=== PATIENT | male | born 1940 | race Caucasian/White ===

== ENCOUNTER 2016-11-06 07:52 | Inpatient (IN) | payer MEDICARE, MEDICAID ==
[~2016-11-06] VITALS: Ht 165.1 cm; Wt 63.6 kg
[~2016-11-06 07:52] MED LIST: ASPI-1093 PO; CLOP75 PO; DIAZ5 PO; DOCU250C28 PO; DULO30CA2 PO; FOLI1TAB85 PO; INSLAN SQ; PANT40TA25 PO; PHOSLOC PO; SIMV-261 PO
[2016-11-06 08:11] LABS: GLUCOSE,POINT OF CARE 59 MG/DL (70-110)
[2016-11-06] MEDS ORDERED: SAXA2.5T PO (08:15)
[2016-11-06] MEDS ORDERED: CLOP75 PO (08:15)
[2016-11-06] MEDS ORDERED: DIAZ5 PO (08:15)
[2016-11-06] MEDS ORDERED: HUM100IN SQ (08:15)
[2016-11-06] MEDS ORDERED: CARV3 PO (08:15)
[2016-11-06 09:31] LABS: ANION GAP 12 mmol/L (8-16); BASOPHILS % (AUTO) 0.5 % (0.0-2.0); CALCIUM, TOTAL 8.8 mg/dL (8.8-10.5); CARBON DIOXIDE 28 mmol/L (22-29); CHLORIDE 102 mmol/L (98-107); CREATININE 5.74 mg/dL (0.60-1.30); EOSINOPHILS % (AUTO) 0.2 % (1.0-6.0); GLOMERULAR FILTR. RATE CALC 10 mL/min (>60); HEMATOCRIT 32.3 % (41-53); HEMOGLOBIN 10.7 g/dL (13.5-17.5); LYMPHOCYTES # (AUTO) 1.2 K/uL (1.0-4.8); LYMPHOCYTES % (AUTO) 19.1 % (22.0-44.0); MEAN CORPUSCULAR HGB CONC 33.1 G/dL (31.0-37.0); MEAN CORPUSCULAR VOLUME 103 fL (80-100); MONOCYTES # (AUTO) 0.6 K/uL (0.1-1.0); NEUTROPHILS # (AUTO) 4.5 K/uL (1.8-7.7); NEUTROPHILS % (AUTO) 70.2 % (40.0-70.0); POTASSIUM 3.4 mmol/L (3.5-5.1); RED BLOOD CELL COUNT(AUTO) 3.14 MIL/uL (4.50-5.90); RED CELL DISTRIBUTION WIDTH 20.3 % (11.5-14.5); SODIUM SERUM 142 mmol/L (136-145); UREA NITROGEN, BLOOD 21 mg/dL (7-18); WHITE BLOOD COUNT (AUTO) 6.4 K/uL (4.5-11.0)
[2016-11-06 09:33] LABS: PLATELET COUNT (AUTO) 73 K/uL (150-450)
[2016-11-06 09:57] LABS: ALANINE AMINOTRANSFERASE 17 U/L (12-78); ALBUMIN 2.5 g/dL (3.4-5.0); ASPARTATE AMINOTRANSFERASE 51 U/L (15-37); BILIRUBIN,TOTAL 0.8 mg/dL (0.1-1.0); CREATINE KINASE, TOTAL 165 U/L (39-308); TOTAL PROTEIN, SERUM 6.1 g/dL (6.4-8.2)
[2016-11-06 09:57] LABS: GLUCOSE,POINT OF CARE 64 MG/DL (70-110)
[2016-11-06 09:58] LABS: B-TYPE NATRIURETIC PEPTIDE > 5000 pg/mL (0-100)
[2016-11-06 09:59] LABS: RBC MORPHOLOGY COMMENT DIMORPHIC RBC
[2016-11-06 10:00] LABS: INR 1.4 (0.9-1.1); PROTHROMBIN TIME 14.5 SEC (9.4-11.6)
[2016-11-06 10:11] LABS: GLUCOSE,POINT OF CARE 74 MG/DL (70-110)
[2016-11-06 12:21] LABS: GLUCOSE,POINT OF CARE 103 MG/DL (70-110)
[2016-11-06] MEDS ORDERED: PHENOBARB/HYOSCY/ATROPINE/SCOP 5 ML UDCUP ELIXIR PO ONE (13:30)
[2016-11-06] MEDS ORDERED: ZOLPIDEM TARTRATE 5 MG TABLET PO PRN (17:45)
[2016-11-06] MEDS ORDERED: ONDANSETRON HCL 4 MG/2 ML VIAL IVP PRN (17:45)
[2016-11-06] MEDS ORDERED: DEXTROSE 50%-WATER 25 GM/50 ML SYRINGE IVP PRN (17:45)
[2016-11-06] MEDS ORDERED: IPRATROPIUM BROMIDE 0.5 MG/2.5 ML NEB SOLUTION NEB PRN (17:45)
[2016-11-06] MEDS ORDERED: MAGNESIUM HYDROXIDE SUSPENSION 30 ML UDCUP PO PRN (17:45)
[2016-11-06] MEDS ORDERED: BISACODYL 10 MG RECTAL RECTAL SUPPOSITORY PR PRN (17:45)
[2016-11-06] MEDS ORDERED: ALBUTEROL SULFATE 2.5 MG/0.5 ML NEB SOLUTION NEB PRN (17:45)
[2016-11-06] MEDS ORDERED: ACETAMINOPHEN 325 MG TABLET PO PRN (18:15)
[2016-11-06] MEDS: NITROGLYCERIN 2% (1 GM=INCH) PACKET TP SCH ×2 (18:32→23:22)
[2016-11-06 19:11] LABS: GLUCOSE,POINT OF CARE 144 MG/DL (70-110)
[2016-11-06 20:36] VITALS: BP 123/76
[2016-11-06] MEDS: MORPHINE SULFATE 2 MG/ML SYRINGE IVP PRN (20:44)
[2016-11-06] MEDS ORDERED: FUROSEMIDE 20 MG/2 ML VIAL IVP ONE (22:15)
[2016-11-06] MEDS ORDERED: GuaiFENesin/D-METHORPHAN [SUGAR-FREE] 200-20MG/10 ML SYRUP UDCUP PO PRN (22:15)
[2016-11-06] MEDS: SIMVASTATIN 40 MG TABLET PO SCH (22:30)
[2016-11-06] MEDS: INSULIN ASPART 100 UNITS/ML SQ PRN (22:58)
[2016-11-06] MEDS: HEPARIN SODIUM,PORCINE 5,000 UNITS/ML VIAL SQ SCH (23:22)
[2016-11-06 23:44] VITALS: BP 105/51
[2016-11-07] MEDS: MORPHINE SULFATE 2 MG/ML SYRINGE IVP PRN (01:47)
[2016-11-07 04:08] VITALS: BP 108/57
[2016-11-07] MEDS: NITROGLYCERIN 2% (1 GM=INCH) PACKET TP SCH ×4 (05:57→23:40)
[2016-11-07 07:08] LABS: BASOPHILS % (AUTO) 0.5 % (0.0-2.0); EOSINOPHILS % (AUTO) 0 % (1.0-6.0); HEMATOCRIT 31.4 % (41-53); HEMOGLOBIN 10.3 g/dL (13.5-17.5); LYMPHOCYTES % (AUTO) 18.3 % (22.0-44.0); MEAN CORPUSCULAR HEMOGLOBIN 33.2 pg (26.0-34.0); MEAN CORPUSCULAR HGB CONC 32.7 G/dL (31.0-37.0); MEAN CORPUSCULAR VOLUME 102 fL (80-100); MONOCYTES # (AUTO) 0.5 K/uL (0.1-1.0); MONOCYTES % (AUTO) 9.1 % (2.0-9.0); NEUTROPHILS % (AUTO) 72.1 % (40.0-70.0); PLATELET COUNT (AUTO) 72 K/uL (150-450); RED BLOOD CELL COUNT(AUTO) 3.09 MIL/uL (4.50-5.90); RED CELL DISTRIBUTION WIDTH 20.7 % (11.5-14.5); WHITE BLOOD COUNT (AUTO) 5.6 K/uL (4.5-11.0)
[2016-11-07 07:18] VITALS: BP 131/46
[2016-11-07 07:21] LABS: HEMOGLOBIN A1C 6.2 % (4.5-6.2)
[2016-11-07 08:08] LABS: ANION GAP 14 mmol/L (8-16); CARBON DIOXIDE 26 mmol/L (22-29); CHLORIDE 102 mmol/L (98-107); CHOL/HDL RATIO 2.8 (4.2-7.3); CREATINE KINASE MB 1.2 ng/mL (0-5); CREATINE KINASE, TOTAL 101 U/L (39-308); CREATININE 7.18 mg/dL (0.60-1.30); GLOMERULAR FILTR. RATE CALC 7 mL/min (>60); POTASSIUM 3.9 mmol/L (3.5-5.1); SODIUM SERUM 142 mmol/L (136-145); UREA NITROGEN, BLOOD 31 mg/dL (7-18)
[2016-11-07 08:09] LABS: THYROID STIMULATING HORMONE 3.31 uIU/mL (0.36-3.74)
[2016-11-07 08:18] LABS: CALCIUM, TOTAL 8.5 mg/dL (8.8-10.5)
[2016-11-07 08:31] LABS: GLUCOSE COMMENT 1 Received Meds; GLUCOSE,POINT OF CARE 145 MG/DL (70-110)
[2016-11-07] MEDS ORDERED: PANTOPRAZOLE SODIUM 40 MG DR TABLET PO SCH (09:00)
[2016-11-07 09:24] LABS: VITAMIN B12 LEVEL 1424 pg/mL (211-911)
[2016-11-07] MEDS: VITAMIN B COMP/VIT C/FOLIC ACID CAPSULE PO SCH (09:26)
[2016-11-07] MEDS: ASPIRIN 81 MG EC TABLET PO SCH (09:26)
[2016-11-07] MEDS: CLOPIDOGREL BISULFATE 75 MG TABLET PO SCH (09:27)
[2016-11-07] MEDS: HEPARIN SODIUM,PORCINE 5,000 UNITS/ML VIAL SQ SCH ×3 (09:27→23:44)
[2016-11-07] MEDS: PANTOPRAZOLE SODIUM 40 MG DR TABLET PO SCH (09:33)
[2016-11-07] MEDS: DULoxetine HCL 30 MG CAPSULE PO SCH (09:33)
[2016-11-07 10:48] LABS: RBC MORPHOLOGY COMMENT ABNORMAL RBC MORPH
[2016-11-07 11:04] VITALS: BP 136/53
[2016-11-07 16:55] VITALS: BP 99/73
[2016-11-07 20:10] VITALS: BP 97/54
[2016-11-07] MEDS: SIMVASTATIN 40 MG TABLET PO SCH (20:17)
[2016-11-07 23:41] VITALS: BP 100/54
[2016-11-08 04:35] VITALS: BP 103/51
[2016-11-08] MEDS: NITROGLYCERIN 2% (1 GM=INCH) PACKET TP SCH ×3 (06:00→20:47)
[2016-11-08 06:21] LABS: BASOPHILS % (AUTO) 0.4 % (0.0-2.0); EOSINOPHILS % (AUTO) 0.3 % (1.0-6.0); HEMOGLOBIN 10.8 g/dL (13.5-17.5); LYMPHOCYTES % (AUTO) 17.5 % (22.0-44.0); MEAN CORPUSCULAR HEMOGLOBIN 33.9 pg (26.0-34.0); MEAN CORPUSCULAR HGB CONC 32.7 G/dL (31.0-37.0); MEAN CORPUSCULAR VOLUME 104 fL (80-100); MONOCYTES # (AUTO) 0.6 K/uL (0.1-1.0); MONOCYTES % (AUTO) 9.5 % (2.0-9.0); NEUTROPHILS # (AUTO) 4.3 K/uL (1.8-7.7); NEUTROPHILS % (AUTO) 72.3 % (40.0-70.0); PLATELET COUNT (AUTO) 78 K/uL (150-450); RED BLOOD CELL COUNT(AUTO) 3.19 MIL/uL (4.50-5.90); RED CELL DISTRIBUTION WIDTH 20.5 % (11.5-14.5)
[2016-11-08 06:28] LABS: CALCIUM, TOTAL 8.7 mg/dL (8.8-10.5); CREATININE 4.46 mg/dL (0.60-1.30); POTASSIUM 3.9 mmol/L (3.5-5.1)
[2016-11-08 08:20] VITALS: BP 105/52
[2016-11-08 09:11] LABS: RBC MORPHOLOGY COMMENT ABNORMAL RBC MORPH
[2016-11-08] MEDS: HEPARIN SODIUM,PORCINE 5,000 UNITS/ML VIAL SQ SCH ×2 (09:48→18:29)
[2016-11-08] MEDS: DULoxetine HCL 30 MG CAPSULE PO SCH (09:48)
[2016-11-08] MEDS: PANTOPRAZOLE SODIUM 40 MG DR TABLET PO SCH (09:48)
[2016-11-08] MEDS: CLOPIDOGREL BISULFATE 75 MG TABLET PO SCH (09:49)
[2016-11-08] MEDS: VITAMIN B COMP/VIT C/FOLIC ACID CAPSULE PO SCH (09:49)
[2016-11-08] MEDS: ASPIRIN 81 MG EC TABLET PO SCH (09:49)
[2016-11-08] MEDS ORDERED: NITROGLYCERIN 0.4 MG SUBLINGUAL TABLET #25 SL PRN (10:45)
[2016-11-08 11:11] VITALS: BP 100/51
[2016-11-08] MEDS ORDERED: SODIUM CHLORIDE 0.9% 2,000 ML IV ONE ×2 (11:13→11:25)
[2016-11-08] MEDS: INSULIN ASPART 100 UNITS/ML SQ PRN ×2 (12:53→18:31)
[2016-11-08] MEDS ORDERED: IPRATROPIUM BROMIDE 0.5 MG/2.5 ML NEB SOLUTION NEB PRN (15:00)
[2016-11-08] MEDS ORDERED: ALBUTEROL SULFATE 2.5 MG/0.5 ML NEB SOLUTION NEB PRN (15:00)
[2016-11-08 15:51] VITALS: BP 107/55
[2016-11-08 19:30] VITALS: BP 105/51
[2016-11-08] MEDS: SIMVASTATIN 40 MG TABLET PO SCH (20:51)
[2016-11-08 23:57] LABS: GLUCOSE COMMENT 1 Received Meds; GLUCOSE,POINT OF CARE 136 MG/DL (70-110)
[2016-11-09 00:22] VITALS: BP 105/56
[2016-11-09] MEDS: HEPARIN SODIUM,PORCINE 5,000 UNITS/ML VIAL SQ SCH ×3 (00:35→16:00)
[2016-11-09 04:03] VITALS: BP 108/75
[2016-11-09] MEDS: NITROGLYCERIN 2% (1 GM=INCH) PACKET TP SCH ×3 (06:00→11:58)
[2016-11-09 06:56] LABS: GLUCOSE,POINT OF CARE 109 MG/DL (70-110)
[2016-11-09 06:56] LABS: GLUCOSE,POINT OF CARE 91 MG/DL (70-110)
[2016-11-09 07:15] LABS: BASOPHILS % (AUTO) 0.7 % (0.0-2.0); EOSINOPHILS % (AUTO) 1.2 % (1.0-6.0); HEMATOCRIT 35.5 % (41-53); HEMOGLOBIN 11.6 g/dL (13.5-17.5); LYMPHOCYTES % (AUTO) 17.2 % (22.0-44.0); MEAN CORPUSCULAR HEMOGLOBIN 33.6 pg (26.0-34.0); MEAN CORPUSCULAR HGB CONC 32.8 G/dL (31.0-37.0); MEAN CORPUSCULAR VOLUME 103 fL (80-100); MONOCYTES # (AUTO) 0.5 K/uL (0.1-1.0); MONOCYTES % (AUTO) 9.1 % (2.0-9.0); NEUTROPHILS # (AUTO) 4.2 K/uL (1.8-7.7); NEUTROPHILS % (AUTO) 71.8 % (40.0-70.0); PLATELET COUNT (AUTO) 83 K/uL (150-450); RED BLOOD CELL COUNT(AUTO) 3.46 MIL/uL (4.50-5.90); RED CELL DISTRIBUTION WIDTH 21.4 % (11.5-14.5); WHITE BLOOD COUNT (AUTO) 5.9 K/uL (4.5-11.0)
[2016-11-09 07:16] VITALS: BP 99/46
[2016-11-09 07:19] LABS: RBC MORPHOLOGY COMMENT ABNORMAL RBC MORPH
[2016-11-09 07:21] LABS: GLUCOSE,POINT OF CARE 137 MG/DL (70-110)
[2016-11-09 07:36] LABS: CREATININE 3.89 mg/dL (0.60-1.30); POTASSIUM 3.3 mmol/L (3.5-5.1); URIC ACID 2.6 mg/dL (2.6-7.2)
[2016-11-09] MEDS: ASPIRIN 81 MG EC TABLET PO SCH (08:04)
[2016-11-09] MEDS: DULoxetine HCL 30 MG CAPSULE PO SCH (08:04)
[2016-11-09] MEDS: CLOPIDOGREL BISULFATE 75 MG TABLET PO SCH (08:04)
[2016-11-09] MEDS: PANTOPRAZOLE SODIUM 40 MG DR TABLET PO SCH (08:04)
[2016-11-09] MEDS: VITAMIN B COMP/VIT C/FOLIC ACID CAPSULE PO SCH (08:04)
[2016-11-09] MEDS ORDERED: PredniSONE 20 MG TABLET PO SCH (09:00)
[2016-11-09 10:59] VITALS: BP 125/65
[2016-11-09] MEDS: INSULIN ASPART 100 UNITS/ML SQ PRN (11:59)
[2016-11-09 13:56] LABS: GLUCOSE COMMENT 1 Received Meds; GLUCOSE,POINT OF CARE 176 MG/DL (70-110)
[2016-11-09 15:25] VITALS: BP 98/52
[2016-11-10 20:42] LABS: GLUCOSE,POINT OF CARE 98 MG/DL (70-110)
[2016-11-10 20:42] LABS: GLUCOSE,POINT OF CARE 114 MG/DL (70-110)
[2016-11-10 20:42] LABS: GLUCOSE COMMENT 1 Received Meds; GLUCOSE,POINT OF CARE 155 MG/DL (70-110)
[2016-11-10 20:42] LABS: GLUCOSE,POINT OF CARE 161 MG/DL (70-110)
[2016-11-10 20:42] LABS: GLUCOSE,POINT OF CARE 108 MG/DL (70-110)
[2016-12-12] MEDS ORDERED: VANC250C13 PO (15:16)
[2016-12-12] MEDS ORDERED: METO25TA6 PO (15:16)
[2016-12-12] MEDS ORDERED: FAMO20 PO (15:16)
[2016-12-12] MEDS ORDERED: MIDO5 PO (15:16)
[2016-12-12] MEDS ORDERED: SEVEC800 PO (15:16)
[2016-12-12] MEDS ORDERED: ATOR40TA28 PO (15:16)
== END 2016-11-09 16:40 | DRG 291 ==
LOC: EMS 07:54 → 5N 19:34
PROVIDERS: ADMIT Internal Medicine Geriatric Medicine; ATTEND Internal Medicine Geriatric Medicine
PROC: 5A1D60Z (ICD-10-PCS; principal; 2016-11-07)
DX: I13.2 Hypertensive heart and chronic kidney disease with heart failure and with stage 5 chronic kidney disease, or end stage renal disease (principal); N18.6 End stage renal disease; I50.23 Acute on chronic systolic (congestive) heart failure; E46 Unspecified protein-calorie malnutrition; I25.110 Atherosclerotic heart disease of native coronary artery with unstable angina pectoris; D69.6 Thrombocytopenia, unspecified; E11.22 Type 2 diabetes mellitus with diabetic chronic kidney disease; D63.8 Anemia in other chronic diseases classified elsewhere; E78.5 Hyperlipidemia, unspecified; E87.6 Hypokalemia; M19.90 Unspecified osteoarthritis, unspecified site; J45.909 Unspecified asthma, uncomplicated; H40.9 Unspecified glaucoma; F32.9 Major depressive disorder, single episode, unspecified; I25.2 Old myocardial infarction; I25.5 Ischemic cardiomyopathy; E11.51 Type 2 diabetes mellitus with diabetic peripheral angiopathy without gangrene; M10.9 Gout, unspecified; K29.70 Gastritis, unspecified, without bleeding; Z99.2 Dependence on renal dialysis; Z88.8 Allergy status to other drugs, medicaments and biological substances; Z79.899 Other long term (current) drug therapy; Z79.02 Long term (current) use of antithrombotics/antiplatelets; Z79.4 Long term (current) use of insulin; Z79.82 Long term (current) use of aspirin; Z95.1 Presence of aortocoronary bypass graft; Z95.5 Presence of coronary angioplasty implant and graft; Z95.810 Presence of automatic (implantable) cardiac defibrillator; Z98.890 Other specified postprocedural states; Z68.23 Body mass index [BMI] 23.0-23.9, adult; Z86.73 Personal history of transient ischemic attack (TIA), and cerebral infarction without residual deficits; Z82.49 Family history of ischemic heart disease and other diseases of the circulatory system
CPT/HCPCS: 82306; 82607; 82746; 82962; 83036; 83735; 84100; 84439; 84443; 84550; 87081; 87324; 87340; 87449; 90935; 93005; 99285; J1644; J1940; J2270; J7030

== ENCOUNTER 2016-11-13 10:47 | Inpatient (IN) | payer MEDICARE, MEDICAID ==
[~2016-11-13] VITALS: Ht 160 cm; Wt 69.1 kg
[~2016-11-13 10:47] MED LIST changes: +CARV3 PO; -DOCU250C28 PO; +HUM100IN SQ; -PHOSLOC PO; +SAXA2.5T PO
[2016-11-13] MEDS ORDERED: VITAD1000 PO (11:01)
[2016-11-13] MEDS ORDERED: SAXA2.5T PO (11:01)
[2016-11-13 11:18] LABS: BASOPHILS # (AUTO) 0.01 K/uL (0.00-0.20); BASOPHILS % (AUTO) 0.2 % (0.0-2.0); EOSINOPHILS % (AUTO) 0.13 % (1.0-6.0); HEMATOCRIT 33.5 % (41-53); HEMOGLOBIN 11.2 g/dL (13.5-17.5); LYMPHOCYTES # (AUTO) 0.3 K/uL (1.0-4.8); LYMPHOCYTES % (AUTO) 9.6 % (22.0-44.0); MEAN CORPUSCULAR HEMOGLOBIN 33.5 pg (26.0-34.0); MEAN CORPUSCULAR HGB CONC 33.4 G/dL (31.0-37.0); MEAN CORPUSCULAR VOLUME 101 fL (80-100); MONOCYTES # (AUTO) 0.3 K/uL (0.1-1.0); MONOCYTES % (AUTO) 10.2 % (2.0-9.0); NEUTROPHILS # (AUTO) 2.5 K/uL (1.8-7.7); NEUTROPHILS % (AUTO) 79.9 % (40.0-70.0); PLATELET COUNT (AUTO) 126 K/uL (150-450); RED BLOOD CELL COUNT(AUTO) 3.33 MIL/uL (4.50-5.90); RED CELL DISTRIBUTION WIDTH 20.7 % (11.5-14.5); WHITE BLOOD COUNT (AUTO) 3.2 K/uL (4.5-11.0)
[2016-11-13 11:19] LABS: INR 1.2 (0.9-1.1); PROTHROMBIN TIME 12.4 SEC (9.4-11.6)
[2016-11-13 11:25] LABS: GLUCOSE,POINT OF CARE 72 MG/DL (70-110)
[2016-11-13] MEDS ORDERED: SODIUM CHLORIDE 0.9% 1,000 ML IV ONE (11:30)
[2016-11-13 11:34] LABS: ALANINE AMINOTRANSFERASE 12 U/L (12-78); ALBUMIN 2.4 g/dL (3.4-5.0); ANION GAP 9 mmol/L (8-16); ASPARTATE AMINOTRANSFERASE 27 U/L (15-37); BILIRUBIN,TOTAL 1.5 mg/dL (0.1-1.0); CALCIUM, TOTAL 8.4 mg/dL (8.8-10.5); CARBON DIOXIDE 30 mmol/L (22-29); CHLORIDE 104 mmol/L (98-107); CREATINE KINASE, TOTAL 69 U/L (39-308); CREATININE 3.04 mg/dL (0.60-1.30); GLOMERULAR FILTR. RATE CALC 20 mL/min (>60); SODIUM SERUM 143 mmol/L (136-145); TOTAL PROTEIN, SERUM 5.9 g/dL (6.4-8.2); UREA NITROGEN, BLOOD 13 mg/dL (7-18)
[2016-11-13 11:41] LABS: B-TYPE NATRIURETIC PEPTIDE 3120 pg/mL (0-100)
[2016-11-13] MEDS ORDERED: AMIODARONE HCL 150 MG in DEXTROSE 5%-WATER 97 ML IV ONE (11:45)
[2016-11-13] MEDS ORDERED: AMIODARONE HCL 360 MG in DEXTROSE 5%-WATER 242.8 ML IV ONE (11:45)
[2016-11-13] MEDS ORDERED: POTASSIUM CHLORIDE 10% 40 MEQ/30 ML LIQUID UDCUP PO ONE (12:15)
[2016-11-13 12:18] LABS: RBC MORPHOLOGY COMMENT ABNORMAL RBC MORPH
[2016-11-13] MEDS ORDERED: NOREPINEPHRINE 4 MG/D5%-WATER 250 ML IV ONE (13:20)
[2016-11-13] MEDS ORDERED: ONDANSETRON HCL 4 MG/2 ML VIAL IVP ONE (13:45)
[2016-11-13] MEDS ORDERED: NOREPINEPHRINE 4 MG/D5%-WATER 250 ML IV PRN ×2 (14:15→20:15)
[2016-11-13] MEDS ORDERED: MAGNESIUM SULFATE 4 GM/WATER 100 ML IV ONE (14:15)
[2016-11-13 14:38] LABS: PHOSPHORUS 2.3 mg/dL (2.5-4.9)
[2016-11-13] MEDS ORDERED: BISACODYL 10 MG RECTAL RECTAL SUPPOSITORY PR PRN (15:15)
[2016-11-13] MEDS ORDERED: IPRATROPIUM BROMIDE 0.5 MG/2.5 ML NEB SOLUTION NEB PRN (15:15)
[2016-11-13] MEDS ORDERED: ZOLPIDEM TARTRATE 5 MG TABLET PO PRN (15:15)
[2016-11-13] MEDS ORDERED: MAGNESIUM HYDROXIDE SUSPENSION 30 ML UDCUP PO PRN (15:15)
[2016-11-13] MEDS ORDERED: ONDANSETRON HCL 4 MG/2 ML VIAL IVP PRN (15:15)
[2016-11-13] MEDS ORDERED: DEXTROSE 50%-WATER 25 GM/50 ML SYRINGE IVP PRN (15:15)
[2016-11-13] MEDS ORDERED: ALBUTEROL SULFATE 2.5 MG/0.5 ML NEB SOLUTION NEB PRN (15:15)
[2016-11-13 16:00] VITALS: BP 100/48
[2016-11-13] MEDS ORDERED: AMIODARONE HCL 540 MG in DEXTROSE 5%-WATER 239.2 ML IV ONE (17:45)
[2016-11-13] MEDS: VANCOMYCIN HCL 125 MG/2.5 ML SOLUTION ORAL.SYG PO SCH (17:54)
[2016-11-13] MEDS: MetroNIDAZOLE 500 MG/NACL 100 ML IV SCH (17:55)
[2016-11-13] MEDS: HEPARIN SODIUM,PORCINE 5,000 UNITS/ML VIAL SQ SCH (18:14)
[2016-11-13] MEDS: INSULIN REGULAR, HUMAN 100 UNITS/ML SQ PRN ×2 (18:40→20:59)
[2016-11-13] MEDS ORDERED: 0.9% SODIUM CHLORIDE 10 ML SYRINGE IVP PRN (19:30)
[2016-11-13 20:00] VITALS: BP 140/57
[2016-11-13] MEDS ORDERED: VANCOMYCIN HCL 1 GM/D5% WATER 200 ML IV PRN (20:15)
[2016-11-13 20:29] LABS: CALCIUM, TOTAL 8.4 mg/dL (8.8-10.5); CREATININE 3.77 mg/dL (0.60-1.30); MAGNESIUM 3.1 mg/dL (1.80-2.40); PHOSPHORUS 2.9 mg/dL (2.5-4.9); POTASSIUM 3.4 mmol/L (3.5-5.1)
[2016-11-13] MEDS ORDERED: VANCOMYCIN HCL 1 GM/D5% WATER 200 ML IV ONE (21:00)
[2016-11-13] MEDS ORDERED: LINEZOLID 600 MG TABLET PO SCH (21:00)
[2016-11-14] VITALS: BP 89/44
[2016-11-14] MEDS: HEPARIN SODIUM,PORCINE 5,000 UNITS/ML VIAL SQ SCH ×2 (00:21→08:15)
[2016-11-14] MEDS: VANCOMYCIN HCL 125 MG/2.5 ML SOLUTION ORAL.SYG PO SCH ×3 (00:21→12:02)
[2016-11-14] MEDS: MetroNIDAZOLE 500 MG/NACL 100 ML IV SCH ×2 (02:49→12:04)
[2016-11-14 04:00] VITALS: BP 88/47
[2016-11-14 05:33] LABS: EOSINOPHILS # (AUTO) 0.01 K/uL (0.00-0.70); EOSINOPHILS % (AUTO) 0.13 % (1.0-6.0); HEMATOCRIT 31.4 % (41-53); HEMOGLOBIN 10.4 g/dL (13.5-17.5); LYMPHOCYTES # (AUTO) 0.5 K/uL (1.0-4.8); LYMPHOCYTES % (AUTO) 11.7 % (22.0-44.0); MEAN CORPUSCULAR HEMOGLOBIN 33.8 pg (26.0-34.0); MEAN CORPUSCULAR VOLUME 103 fL (80-100); MONOCYTES # (AUTO) 0.3 K/uL (0.1-1.0); MONOCYTES % (AUTO) 6.8 % (2.0-9.0); NEUTROPHILS # (AUTO) 3.5 K/uL (1.8-7.7); NEUTROPHILS % (AUTO) 81.4 % (40.0-70.0); PLATELET COUNT (AUTO) 105 K/uL (150-450); RED BLOOD CELL COUNT(AUTO) 3.06 MIL/uL (4.50-5.90); RED CELL DISTRIBUTION WIDTH 21.6 % (11.5-14.5)
[2016-11-14 05:47] LABS: WHITE BLOOD COUNT (AUTO) 5.1 K/uL (4.5-11.0)
[2016-11-14 05:57] LABS: AMYLASE 13 U/L (25-115); ANION GAP 11 mmol/L (8-16); CALCIUM, TOTAL 8.1 mg/dL (8.8-10.5); CARBON DIOXIDE 26 mmol/L (22-29); CHLORIDE 103 mmol/L (98-107); CHOL/HDL RATIO 2.4 (4.2-7.3); CREATINE KINASE, TOTAL 47 U/L (39-308); CREATININE 4.06 mg/dL (0.60-1.30); GLOMERULAR FILTR. RATE CALC 14 mL/min (>60); PHOSPHORUS 2.7 mg/dL (2.5-4.9); POTASSIUM 3.4 mmol/L (3.5-5.1); SODIUM SERUM 140 mmol/L (136-145); UREA NITROGEN, BLOOD 21 mg/dL (7-18); URIC ACID 2.8 mg/dL (2.6-7.2)
[2016-11-14 06:04] LABS: HEMOGLOBIN A1C 6.5 % (4.5-6.2)
[2016-11-14 06:20] LABS: THYROID STIMULATING HORMONE 1.02 uIU/mL (0.36-3.74)
[2016-11-14 08:00] VITALS: BP 92/54
[2016-11-14] MEDS: DULoxetine HCL 30 MG CAPSULE PO SCH (08:15)
[2016-11-14] MEDS: ASPIRIN 81 MG EC TABLET PO SCH (08:15)
[2016-11-14] MEDS: CHOLECALCIFEROL (VIT D3) 2,000 UNITS TABLET PO SCH (08:15)
[2016-11-14] MEDS: PANTOPRAZOLE SODIUM 40 MG DR TABLET PO SCH (08:15)
[2016-11-14 08:38] LABS: RBC MORPHOLOGY COMMENT ABNORMAL RBC MORPH
[2016-11-14] MEDS ORDERED: AMIODARONE HCL 750 MG in DEXTROSE 5%-WATER 485 ML IV SCH (11:45)
[2016-11-14 12:00] VITALS: BP 132/84
[2016-11-14] MEDS: INSULIN REGULAR, HUMAN 100 UNITS/ML SQ PRN ×2 (12:03→20:56)
[2016-11-14 16:00] VITALS: BP 102/58
[2016-11-14 20:00] VITALS: BP 99/44
[2016-11-14] MEDS: AMIODARONE HCL 200 MG TABLET PO SCH (20:54)
[2016-11-15] VITALS (8 sets, daily range): BP systolic 99–138; BP diastolic 39–66
[2016-11-15] MEDS: MetroNIDAZOLE 500 MG/NACL 100 ML IV SCH ×3 (02:00→18:22)
[2016-11-15 05:23] LABS: BASOPHILS # (AUTO) 0.01 K/uL (0.00-0.20); BASOPHILS % (AUTO) 0.2 % (0.0-2.0); EOSINOPHILS # (AUTO) 0.07 K/uL (0.00-0.70); EOSINOPHILS % (AUTO) 0.95 % (1.0-6.0); HEMOGLOBIN 10.4 g/dL (13.5-17.5); LYMPHOCYTES # (AUTO) 0.9 K/uL (1.0-4.8); LYMPHOCYTES % (AUTO) 12.1 % (22.0-44.0); MEAN CORPUSCULAR HEMOGLOBIN 33.5 pg (26.0-34.0); MEAN CORPUSCULAR HGB CONC 32.4 G/dL (31.0-37.0); MEAN CORPUSCULAR VOLUME 104 fL (80-100); MONOCYTES # (AUTO) 0.8 K/uL (0.1-1.0); MONOCYTES % (AUTO) 10.7 % (2.0-9.0); NEUTROPHILS # (AUTO) 5.4 K/uL (1.8-7.7); NEUTROPHILS % (AUTO) 76.1 % (40.0-70.0); PLATELET COUNT (AUTO) 104 K/uL (150-450); RED BLOOD CELL COUNT(AUTO) 3.09 MIL/uL (4.50-5.90); RED CELL DISTRIBUTION WIDTH 21.5 % (11.5-14.5); WHITE BLOOD COUNT (AUTO) 7.1 K/uL (4.5-11.0)
[2016-11-15 05:42] LABS: CALCIUM, TOTAL 7.6 mg/dL (8.8-10.5); CREATININE 5.2 mg/dL (0.60-1.30); POTASSIUM 3.1 mmol/L (3.5-5.1)
[2016-11-15] MEDS: VANCOMYCIN HCL 125 MG/2.5 ML SOLUTION ORAL.SYG PO SCH ×5 (06:16→23:59)
[2016-11-15] MEDS: INSULIN REGULAR, HUMAN 100 UNITS/ML SQ PRN ×2 (07:12→12:52)
[2016-11-15 07:38] LABS: RBC MORPHOLOGY COMMENT ABNORMAL RBC MORPH
[2016-11-15] MEDS: CHOLECALCIFEROL (VIT D3) 2,000 UNITS TABLET PO SCH (09:02)
[2016-11-15] MEDS: ASPIRIN 81 MG EC TABLET PO SCH (09:02)
[2016-11-15] MEDS: DULoxetine HCL 30 MG CAPSULE PO SCH (09:02)
[2016-11-15] MEDS: AMIODARONE HCL 200 MG TABLET PO SCH ×2 (09:02→20:50)
[2016-11-15] MEDS: PANTOPRAZOLE SODIUM 40 MG DR TABLET PO SCH (09:03)
[2016-11-15] MEDS: HEPARIN SODIUM,PORCINE 5,000 UNITS/ML VIAL SQ SCH ×4 (09:03→23:58)
[2016-11-15] MEDS ORDERED: ALBUMIN HUMAN 25%-12.5GM/50ML IV BOTTLE IV ONE (12:00)
[2016-11-15] MEDS ORDERED: MANNITOL 25%-12.5 GM/50 ML VIAL IVP PRN (12:00)
[2016-11-15] MEDS ORDERED: SODIUM CHLORIDE 0.9% 2,000 ML IV ONE (14:24)
[2016-11-15] MEDS ORDERED: ALBUMIN HUMAN 25%-12.5GM/50ML IV BOTTLE IV PRN ×2 (15:45→16:00)
[2016-11-15] MEDS ORDERED: VANCOMYCIN HCL 1 GM/D5% WATER 200 ML IV ONE (18:00)
[2016-11-15] MEDS ORDERED: SODIUM CHLORIDE 0.9% 250 ML IV ONE (18:12)
[2016-11-15 18:17] LABS: GLUCOSE COMMENT 1 Received Meds; GLUCOSE,POINT OF CARE 197 MG/DL (70-110)
[2016-11-15 18:17] LABS: GLUCOSE COMMENT 1 Received Meds; GLUCOSE,POINT OF CARE 166 MG/DL (70-110)
[2016-11-15 18:17] LABS: GLUCOSE COMMENT 1 Received Meds; GLUCOSE,POINT OF CARE 218 MG/DL (70-110)
[2016-11-15 18:17] LABS: GLUCOSE,POINT OF CARE 155 MG/DL (70-110)
[2016-11-15 18:17] LABS: GLUCOSE,POINT OF CARE 127 MG/DL (70-110)
[2016-11-15 18:18] LABS: GLUCOSE,POINT OF CARE 165 MG/DL (70-110)
[2016-11-15 18:20] LABS: GLUCOSE,POINT OF CARE 153 MG/DL (70-110)
[2016-11-15 18:21] LABS: GLUCOSE COMMENT 1 Received Meds; GLUCOSE,POINT OF CARE 202 MG/DL (70-110)
[2016-11-15 18:51] LABS: GLUCOSE,POINT OF CARE 105 MG/DL (70-110)
[2016-11-16] MEDS: MetroNIDAZOLE 500 MG/NACL 100 ML IV SCH ×3 (02:37→17:44)
[2016-11-16 04:03] VITALS: BP 100/56
[2016-11-16] MEDS: VANCOMYCIN HCL 125 MG/2.5 ML SOLUTION ORAL.SYG PO SCH ×4 (05:16→23:40)
[2016-11-16 06:35] LABS: EOSINOPHILS % (AUTO) 0.6 % (1.0-6.0); HEMATOCRIT 31.3 % (41-53); HEMOGLOBIN 10.2 g/dL (13.5-17.5); LYMPHOCYTES # (AUTO) 0.7 K/uL (1.0-4.8); LYMPHOCYTES % (AUTO) 13.4 % (22.0-44.0); MEAN CORPUSCULAR HEMOGLOBIN 33.9 pg (26.0-34.0); MEAN CORPUSCULAR HGB CONC 32.7 G/dL (31.0-37.0); MEAN CORPUSCULAR VOLUME 104 fL (80-100); MONOCYTES # (AUTO) 0.7 K/uL (0.1-1.0); MONOCYTES % (AUTO) 13.2 % (2.0-9.0); NEUTROPHILS # (AUTO) 3.8 K/uL (1.8-7.7); NEUTROPHILS % (AUTO) 72.8 % (40.0-70.0); PLATELET COUNT (AUTO) 101 K/uL (150-450); RED BLOOD CELL COUNT(AUTO) 3.02 MIL/uL (4.50-5.90); WHITE BLOOD COUNT (AUTO) 5.3 K/uL (4.5-11.0)
[2016-11-16 07:10] VITALS: BP 106/50
[2016-11-16 07:12] LABS: GLUCOSE,POINT OF CARE 138 MG/DL (70-110)
[2016-11-16 07:12] LABS: GLUCOSE,POINT OF CARE 112 MG/DL (70-110)
[2016-11-16 08:36] LABS: CALCIUM, TOTAL 7.9 mg/dL (8.8-10.5); CREATININE 3.39 mg/dL (0.60-1.30); POTASSIUM 3.6 mmol/L (3.5-5.1)
[2016-11-16] MEDS: HEPARIN SODIUM,PORCINE 5,000 UNITS/ML VIAL SQ SCH ×3 (08:45→23:40)
[2016-11-16] MEDS: ASPIRIN 81 MG EC TABLET PO SCH (08:45)
[2016-11-16] MEDS: PANTOPRAZOLE SODIUM 40 MG DR TABLET PO SCH (08:45)
[2016-11-16] MEDS: DULoxetine HCL 30 MG CAPSULE PO SCH (08:45)
[2016-11-16] MEDS: CHOLECALCIFEROL (VIT D3) 2,000 UNITS TABLET PO SCH (08:45)
[2016-11-16] MEDS: AMIODARONE HCL 200 MG TABLET PO SCH ×2 (08:45→20:31)
[2016-11-16 09:35] LABS: RBC MORPHOLOGY COMMENT ABNORMAL RBC MORPH
[2016-11-16 11:51] VITALS: BP 107/50
[2016-11-16] MEDS: INSULIN REGULAR, HUMAN 100 UNITS/ML SQ PRN ×2 (13:10→17:53)
[2016-11-16 15:25] VITALS: BP 108/54
[2016-11-16 18:27] LABS: GLUCOSE,POINT OF CARE 160 MG/DL (70-110)
[2016-11-16 19:18] VITALS: BP 100/50
[2016-11-16 22:16] LABS: GLUCOSE,POINT OF CARE 121 MG/DL (70-110)
[2016-11-17] VITALS (7 sets, daily range): BP systolic 94–113; BP diastolic 45–57
[2016-11-17] MEDS: MetroNIDAZOLE 500 MG/NACL 100 ML IV SCH ×3 (02:47→20:43)
[2016-11-17] MEDS: VANCOMYCIN HCL 125 MG/2.5 ML SOLUTION ORAL.SYG PO SCH ×4 (05:26→23:54)
[2016-11-17] MEDS: DULoxetine HCL 30 MG CAPSULE PO SCH (09:03)
[2016-11-17] MEDS: AMIODARONE HCL 200 MG TABLET PO SCH ×2 (09:03→20:44)
[2016-11-17] MEDS: CHOLECALCIFEROL (VIT D3) 2,000 UNITS TABLET PO SCH (09:03)
[2016-11-17] MEDS: PANTOPRAZOLE SODIUM 40 MG DR TABLET PO SCH (09:03)
[2016-11-17] MEDS: HEPARIN SODIUM,PORCINE 5,000 UNITS/ML VIAL SQ SCH ×3 (09:04→23:54)
[2016-11-17] MEDS: ASPIRIN 81 MG EC TABLET PO SCH (09:04)
[2016-11-17] MEDS: INSULIN REGULAR, HUMAN 100 UNITS/ML SQ PRN (11:53)
[2016-11-17 14:57] LABS: GLUCOSE,POINT OF CARE 123 MG/DL (70-110)
[2016-11-17 14:57] LABS: GLUCOSE COMMENT 1 Received Meds; GLUCOSE,POINT OF CARE 168 MG/DL (70-110)
[2016-11-17] MEDS ORDERED: SODIUM CHLORIDE 0.9% 1,000 ML IV ONE (17:34)
[2016-11-17] MEDS ORDERED: SODIUM CHLORIDE 0.9% 250 ML IV ONE (20:36)
[2016-11-18 02:42] LABS: GLUCOSE,POINT OF CARE 117 MG/DL (70-110)
[2016-11-18 02:42] LABS: GLUCOSE,POINT OF CARE 119 MG/DL (70-110)
[2016-11-18 04:24] VITALS: BP 108/51
[2016-11-18] MEDS: VANCOMYCIN HCL 125 MG/2.5 ML SOLUTION ORAL.SYG PO SCH ×2 (05:27→12:11)
[2016-11-18 07:52] VITALS: BP 106/46
[2016-11-18] MEDS: LACTOBACILLUS ACIDOPHILUS/BULGARICUS GRANULES PACKET PO SCH ×3 (08:23→16:43)
[2016-11-18] MEDS: HEPARIN SODIUM,PORCINE 5,000 UNITS/ML VIAL SQ SCH ×2 (08:23→16:43)
[2016-11-18] MEDS: AMIODARONE HCL 200 MG TABLET PO SCH (08:24)
[2016-11-18] MEDS: DULoxetine HCL 30 MG CAPSULE PO SCH (08:24)
[2016-11-18] MEDS: ASPIRIN 81 MG EC TABLET PO SCH (08:24)
[2016-11-18] MEDS: CHOLECALCIFEROL (VIT D3) 2,000 UNITS TABLET PO SCH (08:24)
[2016-11-18] MEDS: PANTOPRAZOLE SODIUM 40 MG DR TABLET PO SCH (08:24)
[2016-11-18 11:05] VITALS: BP 109/55
[2016-11-18 11:52] LABS: GLUCOSE,POINT OF CARE 137 MG/DL (70-110)
[2016-11-18] MEDS: INSULIN REGULAR, HUMAN 100 UNITS/ML SQ PRN (12:17)
[2016-11-18] MEDS ORDERED: AMIO200T2 PO (13:58)
[2016-11-18] MEDS ORDERED: PANT40TA25 PO (14:02)
[2016-11-18] MEDS ORDERED: INSLAN SQ (14:07)
[2016-11-18 14:47] VITALS: BP 110/54
[2016-11-19 11:58] LABS: GLUCOSE COMMENT 1 Received Meds; GLUCOSE,POINT OF CARE 151 MG/DL (70-110)
[2016-11-19 12:02] LABS: GLUCOSE,POINT OF CARE 113 MG/DL (70-110)
[2016-12-12] MEDS ORDERED: ATOR40TA28 PO (15:16)
[2016-12-12] MEDS ORDERED: VANC250C13 PO (15:16)
[2016-12-12] MEDS ORDERED: SEVEC800 PO (15:16)
[2016-12-12] MEDS ORDERED: FAMO20 PO (15:16)
[2016-12-12] MEDS ORDERED: METO25TA6 PO (15:16)
[2016-12-12] MEDS ORDERED: MIDO5 PO (15:16)
== END 2016-11-18 17:00 | DRG 871 ==
LOC: EMS 10:52 → ICU 14:31 → 5S 11-15 14:30
PROVIDERS: ADMIT Internal Medicine Geriatric Medicine; ATTEND Internal Medicine Geriatric Medicine
PROC: 4B02XTZ Measurement of Cardiac Defibrillator, External Approach (ICD-10-PCS; principal; 2016-11-13)
PROC: 5A1D60Z (ICD-10-PCS; 2016-11-15)
DX: A41.4 Sepsis due to anaerobes (principal); N18.6 End stage renal disease; R65.21 Severe sepsis with septic shock; E43 Unspecified severe protein-calorie malnutrition; A04.7 Enterocolitis due to Clostridium difficile; I12.0 Hypertensive chronic kidney disease with stage 5 chronic kidney disease or end stage renal disease; I47.1 Supraventricular tachycardia; D61.818 Other pancytopenia; I50.22 Chronic systolic (congestive) heart failure; E44.0 Moderate protein-calorie malnutrition; E11.22 Type 2 diabetes mellitus with diabetic chronic kidney disease; E78.00 Pure hypercholesterolemia, unspecified; E78.5 Hyperlipidemia, unspecified; E83.39 Other disorders of phosphorus metabolism; E83.42 Hypomagnesemia; E87.6 Hypokalemia; H40.9 Unspecified glaucoma; I25.5 Ischemic cardiomyopathy; I48.91 Unspecified atrial fibrillation; E11.51 Type 2 diabetes mellitus with diabetic peripheral angiopathy without gangrene; M19.90 Unspecified osteoarthritis, unspecified site; F32.9 Major depressive disorder, single episode, unspecified; E66.9 Obesity, unspecified; I95.3 Hypotension of hemodialysis; I25.119 Atherosclerotic heart disease of native coronary artery with unspecified angina pectoris; J45.909 Unspecified asthma, uncomplicated; Z86.73 Personal history of transient ischemic attack (TIA), and cerebral infarction without residual deficits; I25.2 Old myocardial infarction; Z95.1 Presence of aortocoronary bypass graft; Z95.810 Presence of automatic (implantable) cardiac defibrillator; Z99.2 Dependence on renal dialysis; Z88.8 Allergy status to other drugs, medicaments and biological substances; Z79.02 Long term (current) use of antithrombotics/antiplatelets; Z79.4 Long term (current) use of insulin; Z79.899 Other long term (current) drug therapy; Z79.82 Long term (current) use of aspirin; Z98.890 Other specified postprocedural states; Z95.5 Presence of coronary angioplasty implant and graft; Z68.27 Body mass index [BMI] 27.0-27.9, adult; Z87.440 Personal history of urinary (tract) infections; Z82.49 Family history of ischemic heart disease and other diseases of the circulatory system
CPT/HCPCS: 82270; 82306; 82607; 82746; 82962; 83036; 83735; 84100; 84439; 84443; 84550; 87040; 87045; 87081; 87324; 87449; 87798; 89055; 90935; 93005; 96365; 96366; 96368; 96375; 99285; J0282; J1644; J2405; J3370; J3475; J3490; J7030; J7050; J7060; P9047

== ENCOUNTER → 2016-12-12 | Outpatient (CLI) | payer MEDICARE, MEDICAID ==
[~2016-12-12] MED LIST changes: +AMIO200T2 PO; +ATOR40TA28 PO; +FAMO20 PO; +METO25TA6 PO; +MIDO5 PO; +SEVEC800 PO; -SIMV-261 PO; +SIMV40 PO; +VANC250C13 PO; +VITAD1000 PO
[2016-12-12 15:08] VITALS: BP 70/42
== END | disposition home or self-care (01) ==
LOC: SRCNTR 14:42
PROVIDERS: ATTEND Internal Medicine Cardiovascular Disease
DX: E11.9 Type 2 diabetes mellitus without complications (principal); I12.0 Hypertensive chronic kidney disease with stage 5 chronic kidney disease or end stage renal disease; N18.6 End stage renal disease; I25.10 Atherosclerotic heart disease of native coronary artery without angina pectoris; E78.5 Hyperlipidemia, unspecified; I50.9 Heart failure, unspecified; I25.5 Ischemic cardiomyopathy; I73.9 Peripheral vascular disease, unspecified; Z95.810 Presence of automatic (implantable) cardiac defibrillator; Z95.1 Presence of aortocoronary bypass graft; Z99.2 Dependence on renal dialysis
CPT/HCPCS: G0463

== ENCOUNTER → 2017-01-30 | Outpatient (CLI) | payer MEDICARE, MEDICAID ==
[~2017-01-30] VITALS: Ht 160 cm; Wt 56.5 kg
[~2017-01-30] MED LIST changes: -AMIO200T2 PO; -CARV3 PO; -DIAZ5 PO; -DULO30CA2 PO; -FOLI1TAB85 PO; -HUM100IN SQ; -INSLAN SQ; -PANT40TA25 PO; -SAXA2.5T PO; -VITAD1000 PO
[2017-01-30 14:33] VITALS: BP 78/33
== END | disposition home or self-care (01) ==
LOC: SRCNTR 14:07
PROVIDERS: ATTEND Internal Medicine Cardiovascular Disease
DX: N18.6 End stage renal disease (principal); I25.10 Atherosclerotic heart disease of native coronary artery without angina pectoris; I25.5 Ischemic cardiomyopathy; I95.89 Other hypotension; E78.5 Hyperlipidemia, unspecified; I73.9 Peripheral vascular disease, unspecified; E11.65 Type 2 diabetes mellitus with hyperglycemia; Z95.1 Presence of aortocoronary bypass graft; Z99.2 Dependence on renal dialysis; Z95.810 Presence of automatic (implantable) cardiac defibrillator
CPT/HCPCS: G0463

== ENCOUNTER → 2017-03-01 | Outpatient (CLI) | payer MEDICARE, MEDICAID ==
[~2017-03-01] VITALS: Ht 160 cm; Wt 57.0 kg
[~2017-03-01] MED LIST changes: -METO25TA6 PO; -SEVEC800 PO; -SIMV40 PO; -VANC250C13 PO
[2017-03-01 13:54] VITALS: BP 128/63
== END | disposition home or self-care (01) ==
LOC: SRCNTR 13:47
PROVIDERS: ATTEND Internal Medicine Cardiovascular Disease
DX: E11.22 Type 2 diabetes mellitus with diabetic chronic kidney disease (principal); N18.6 End stage renal disease; I25.10 Atherosclerotic heart disease of native coronary artery without angina pectoris; I25.5 Ischemic cardiomyopathy; E78.5 Hyperlipidemia, unspecified; I50.9 Heart failure, unspecified; I73.9 Peripheral vascular disease, unspecified; R53.1 Weakness; Z95.1 Presence of aortocoronary bypass graft; Z95.0 Presence of cardiac pacemaker
CPT/HCPCS: G0463

== ENCOUNTER → 2017-03-13 | Outpatient (CLI) | payer MEDICARE, MEDICAID ==
[2017-03-13 14:00] VITALS: BP 138/84
== END | disposition home or self-care (01) ==
LOC: SRCNTR 13:56
PROVIDERS: ATTEND Internal Medicine Cardiovascular Disease
DX: Z45.02 Encounter for adjustment and management of automatic implantable cardiac defibrillator (principal); E11.22 Type 2 diabetes mellitus with diabetic chronic kidney disease; N18.6 End stage renal disease; E78.5 Hyperlipidemia, unspecified; I25.10 Atherosclerotic heart disease of native coronary artery without angina pectoris; I73.9 Peripheral vascular disease, unspecified; I25.5 Ischemic cardiomyopathy; Z98.890 Other specified postprocedural states; Z99.2 Dependence on renal dialysis; Z79.82 Long term (current) use of aspirin; Z79.899 Other long term (current) drug therapy
CPT/HCPCS: G0463